=== PATIENT | female | born 1965 ===

== ENCOUNTER → 2022-02-01 07:46 | Outpatient (BNVA) | payer OTHER, SELFPAY | PROVIDERS: PCP Internal Medicine Endocrinology, Diabetes & Metabolism; Visit Provider Registered Nurse Diabetes Educator | DX: E10.9 Type 1 diabetes mellitus without complications (principal) ==

== ENCOUNTER → 2022-02-28 08:15 | Outpatient (BNVA) | payer OTHER, SELFPAY | PROVIDERS: PCP Internal Medicine Endocrinology, Diabetes & Metabolism; Visit Provider Registered Nurse Diabetes Educator | DX: Z13.89 Encounter for screening for other disorder (principal) ==

== ENCOUNTER → 2022-07-25 08:22 | Outpatient (BNVA) | payer OTHER, SELFPAY | PROVIDERS: PCP Internal Medicine Endocrinology, Diabetes & Metabolism; Visit Provider Registered Nurse Diabetes Educator ==

== ENCOUNTER 2022-10-17 09:20 | Outpatient (AMB) | payer OTHER, SELFPAY ==
--- NOTE | 2022-10-17 09:50 | A.OFFVIS_ITS ---
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 Assess patient education level/literacy/barriers Patient questions/concerns, patient reports she is still Dr. Weems in September 2022. At that visit she reported to him that she is not taking any insulin at this time. Reports provider spoke to her regarding honeymoon. Instructed patient on the importance of frequent glucose testing if she is not taking insulin. Discussed the risks involved in continuing withholding, insulin. Patient reports multiple stressors relating to work environment. Discussed the effects stress can also have on glucose levels. Instructed patient again on rules about testing for ketones The patient met all learning objectives and was able to verbalize understanding and provide teach back of education topics discussed . The patient was provided with the opportunity to ask questions and all questions were answered. Topics covered in today?s session included: Insulin/Injectables (If applicable) ? Storage/care of insulin? Injection sites? Site rotation? Onset, peak, duration ? Drawing up insulin? Injecting insulin/other injectables? Sharps disposal Continuous blood glucose monitoring (if applicable) Hypoglycemia and Hyperglycemia ? Signs and symptoms? Causes? Treatment? Preventing hypoglycemia? When to seek medical attention ?Blood glucose targets and how you feel when your blood glucose is in and out of your target ranges. ?Monitoring and knowing your A1C. ?What can make blood glucose go up and down and preventing high and low blood glucose. ?Review of blood sugar targets in expected goal range and outside of expected goal range. ?Problem solving and preventing hyper/hypoglycemia. ?Sick day management of diabetes. ?Using blood sugar results in decision making process in managing diabetes. ?Patient was receptive to information provided and participated in the discussion. Asked?appropriate questions and demonstrated good understanding of the topics discussed.? ? Smart Goal Assessment:? patient has still not picked up a container of ketone strips. instructed patient it is important to have ketone strips at home, in case of illness or unexplained high glucose levels Pt met goal less than 25% New Smart Goal: Patient will test glucose twice a day Patient Response to instructions: Comprehension of Instructions: fair Readiness to make changes:? contemplation How confident they feel about making changes:fair Coding Level of Care Code Est Pt Level 1 (72792) Diagnoses Type 1 diabetes E10.9
== END 2022-10-17 09:57 | disposition home or self-care (01) ==
LOC: HO.ENCR 09:20
PROVIDERS: PCP Internal Medicine Endocrinology, Diabetes & Metabolism; Visit Provider Registered Nurse Diabetes Educator
DX: E10.9 Type 1 diabetes mellitus without complications (principal)

== ENCOUNTER → 2022-10-17 09:20 | Outpatient (BNVA) | payer OTHER, SELFPAY | PROVIDERS: PCP Internal Medicine Endocrinology, Diabetes & Metabolism; Visit Provider Registered Nurse Diabetes Educator | DX: E10.9 Type 1 diabetes mellitus without complications (principal) | CPT/HCPCS: 99211 ==

== ENCOUNTER 2023-01-16 08:13 | Outpatient (AMB) | payer MEDICARE, SELFPAY ==
--- NOTE | 2023-01-16 08:38 | MHC.AMDMED ---
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 Breakfast/Fasting? ? ? Pre-Lunch? ? ? Pre-Supper? ? ? Bedtime? ? ? Notes 01/16? 112? 12/10? ? 93?107? 12/9? ? ? 104?119 ? 12/8? 89? 140? 12/7? ? ? 101?129 ? 12/6? 97?151 ? Plan/Goal:?Patient met goal check glucose 2 times daily 100% of the time patient's last A1c December 2022 5.7% patient reports she is having shoulder surgery in the coming weeks. patient is still not using any basal or bolus insulin states that Dr. Weems is aware. below reviewed today's visit due to upcoming surgery People with diabetes face a higher risk for complications. In general, people with diabetes are more likely to experience severe symptoms and complications when they have an infection or increased stressors. Before you get sick,?make a plan: Gather your supplies: ? Phone numbers of your doctors and healthcare team, your pharmacy and your insurance provider ? List of medications and doses (including vitamins and supplements) ? Simple carbs like regular soda, honey, jam, Jell-O, hard candies or popsicles to help keep your blood sugar up if you are at risk for lows and too ill to eat ? If a state of emergency is declared, get extra refills on your prescriptions so you do not have to leave the house ?? If you can't get to the pharmacy, find out about having your medications delivered ? Always have enough insulin for the week ahead, in case you get sick or cannot refill ? Extra supplies like rubbing alcohol and soap to wash your hands ? Glucagon and ketone strips, in case of lows and highs ? Have enough household items and groceries on hand so that you will be prepared to stay at home for a period of time Talk to your health care team about the following: ? When to call your doctor's office (for ketones, changes in food intake, medication adjustments, etc.) ? How often to check your blood sugar ? When to check for ketones ? Medications you should use for colds, flu, virus, and infections ? Any changes to your diabetes medications when you are sick Take everyday precautions: ? Avoid close contact with people who are sick ? Take preventive actions: ??? Clean your hands often Wash your hands often with soap and water for at least 20 seconds, especially after blowing your nose, coughing, or sneezing, or having been in a public place. ?? If soap and water are not available, use a hand world travel counselor that contains at least 60% alcohol. To the extent possible, avoid touching high-touch surfaces in public places?elevator buttons, door handles, handrails, handshaking with people, etc. Use a tissue or your sleeve to cover your hand or finger if you must touch something. Wash your hands after touching surfaces in public places. ? Avoid touching your face, nose, eyes, etc. Clean and disinfect your home to remove germs: practice routine cleaning of frequently touched surfaces (for example: tables, doorknobs, light switches, handles, desks, toilets, faucets, sinks & cell phones) Avoid crowds, especially in poorly ventilated spaces. Your risk of exposure to respiratory viruses like COVID-19 may increase in crowded, closed-in settings with little air circulation if there are people in the crowd who are sick. Avoid all non-essential travel including plane trips, and especially avoid embarking on cruise ships. Watch for emergency warning signs: If you develop emergency warning signs get medical attention?immediately. In adults, emergency warning signs include: ? Difficulty breathing or shortness of breath ? Persistent pain or pressure in the chest ? New confusion or inability to arouse ? Bluish lips or face If you do get sick, know what to do: Here are some common tips, which may vary for each person: ? Drink lots of fluids. If you're having trouble keeping water down, have small sips every 15 minutes or so throughout the day to avoid dehydration. ? If you are experiencing a low (blood sugar below 70 mg/dl or your target range), eat 15 grams of simple carbs that are easy to digest like honey, jam, Jell-O, hard candy, popsicles, juice or regular soda, and re-check your blood sugar in 15 minutes to make sure your levels are rising. Check your blood sugar extra times throughout the day and night (generally, every 2-3 hours; if using a CGM, monitor frequently). ? If your blood sugar has registered high (BG greater than 240mg/dl) more than 2 times in a row ? Call your doctor's office immediately, if you have medium or large ketones (and if instructed to with trace or small ketones). ? Wash your hands and clean your injection/infusion and finger-stick sites with soap and water or rubbing alcohol. Why do blood glucose values go up when I am sick? Your body is under stress when you are sick. Hormones that are released to help fight the illness can also raise your glucose levels. Your body becomes less sensitive to your insulin too, so you need more to have the same effect compared to when you are well. Patient Instructions: What should I always keep on hand to be prepared for a sick day? Glucose testing kit and strips (more than you think you will need) or CGM sensors ? Ketone testing supplies, either urine or special test strips for fingerstick testing with specific meter (even if you feel you never get sick because the level of ketones lets you and your team know how severely your diabetes is being affected by your illness) ? Plenty of water or sugar-free beverages ? Plenty of all your types of insulin What should I do when I am sick? Continue to take your insulin even if you are not eating much. Take your long acting insulin or continue your basal insulin if you are on an insulin pump. ? Check your blood glucose values every 3-4 hours. If you have a continuous glucose monitor, watch for trends and make sure your correctional insulin is working. ? Check for ketones even if your blood glucose values are not high. Call your diabetes team if your ketones are moderate or high. When you are sick, they can be high even when your glucose values are within your target range. ? Stay well hydrated, drinking fluid every hour ? tea, water, diet soda, broth. ? Make sure you are also eating some carbohydrates When should I call for help? You have been sick or had a fever for a few days and are not getting better. ? You are vomiting or have diarrhea for more than 6 hours. ? You have moderate to large ketones even if your glucose is not high. ? Your blood glucose values stay above 240 mg/dl even when you are giving extra insulin. You are not sure what to do When should I get help right away? at this time patient's diabetes is stable, we will not make another Diabetes Education visit however patient was instructed if she has questions or concerns at any time she can call, or schedule follow-up appointment Coding Level of Care Code Est Pt Level 1 (29034) Diagnoses Type 1 diabetes E10.9
== END 2023-01-16 08:51 | disposition home or self-care (01) ==
PROVIDERS: PCP Internal Medicine Endocrinology, Diabetes & Metabolism; Visit Provider Registered Nurse Diabetes Educator
DX: E10.9 Type 1 diabetes mellitus without complications (principal)

== ENCOUNTER → 2023-01-16 08:13 | Outpatient (BNVA) | payer MEDICAID, SELFPAY | PROVIDERS: PCP Internal Medicine Endocrinology, Diabetes & Metabolism; Visit Provider Registered Nurse Diabetes Educator | DX: E10.9 Type 1 diabetes mellitus without complications (principal) | CPT/HCPCS: 99211 ==